=== PATIENT | female | born 2000 | race Caucasian/White ===

== ENCOUNTER 2019-09-05 13:17 | Emergency (ER) | payer OTHER ==
[~2019-09-05] VITALS: Ht 165.1 cm; Wt 73.0 kg
[2019-09-05 14:45] LABS: BASO % 0.2 % (0.0-1.0); EOS % 0.1 % (0.0-3.0); HEMATOCRIT 51.3 % (36.0-47.0); HEMOGLOBIN 17.3 g/dl (12.0-15.5); LYMPH # 0.6 10^3/uL (1.5-5.0); LYMPH % 4.6 % (24.0-44.0); MEAN CORPUSCULAR HEMOGLOBIN 29.9 pg (27.0-33.0); MEAN CORPUSCULAR HGB CONC 33.7 g/dl (32.0-36.5); MEAN CORPUSCULAR VOLUME 88.8 fl (80.0-96.0); MONO # 0.4 10^3/uL (0.0-0.8); MONO % 2.9 % (0.0-5.0); NEUTROPHILS # 12.8 10^3/uL (1.5-8.5); NEUTROPHILS % 91.8 % (36.0-66.0); PLATELET COUNT, AUTOMATED 295 10^3/uL (150-450); RED BLOOD COUNT 5.78 10^6/uL (4.00-5.40); WHITE BLOOD COUNT 13.9 10^3/uL (4.0-10.0)
[2019-09-05] MEDS ORDERED: NS 1,000 ML IV ONE ×2 (15:00→17:30)
[2019-09-05] MEDS ORDERED: ONDANSETRON 4MG/2ML VIAL (J2405) IV ONE (15:00)
[2019-09-05 15:14] LABS: ALBUMIN 4.6 GM/DL (3.2-5.2); ALT/SGPT 31 U/L (12-78); BILIRUBIN,DIRECT 0.2 MG/DL (0.0-0.2); BILIRUBIN,TOTAL 0.8 MG/DL (0.2-1.0); BLOOD UREA NITROGEN 16 MG/DL (7-18); CALCIUM LEVEL 10.4 MG/DL (8.5-10.1); CARBON DIOXIDE LEVEL 22 MEQ/L (21-32); CHLORIDE LEVEL 108 MEQ/L (98-107); CREATININE FOR GFR 1.09 MG/DL (0.55-1.30); GLOMERULAR FILTRATION RATE > 60.0 (>60); GLUCOSE, FASTING 106 MG/DL (70-100); LIPASE 88 U/L (73-393); POTASSIUM SERUM 4.9 MEQ/L (3.5-5.1); SODIUM LEVEL 140 MEQ/L (136-145)
[2019-09-05] MEDS ORDERED: ISOVUE-370 76% 100ML VIAL (Q9967) As Ordered ONE (16:01)
[2019-09-05 16:32] LABS: INFLUENZA A AMPLIFICATION NEGATIVE (NEGATIVE); INFLUENZA B AMPLIFICATION NEGATIVE (NEGATIVE)
--- NOTE | 2019-09-05 16:59 | REP ---
CT ABDOMEN AND PELVIS WITH IV CONTRAST: TECHNIQUE: Axial contrast enhanced images from the lung bases to the pubic symphysis using 100 mL Isovue 370 intravenous contrast material with multiplanar reformations. Visualized lung bases are clear. The liver, spleen, adrenals, pancreas and kidneys are normal in appearance. There is no hydronephrosis. There is no abdominal aortic aneurysm. There is no adenopathy. There is no free air or free fluid. No bowel wall thickening is seen. There is no evidence of bowel obstruction. No anterior abdominal wall defect is seen. No pelvic mass is seen. Uterus and ovaries appear unremarkable. IUD is seen in the uterus. Urinary bladder is not well distended and not well evaluated. IMPRESSION: No free air or obstruction. No free fluid. No bowel wall thickening. No acute findings identified. Electronically Signed by Francois Amado MD 09/05/2019 05:19 P
[2019-09-05] MEDS ORDERED: ONDA4TAB6 PO (17:52)
[2019-09-05 18:19] VITALS: BP 108/58
== END 2019-09-05 18:22 | disposition home or self-care (01) ==
LOC: M ED 13:17
DX: A08.11 Acute gastroenteropathy due to Norwalk agent (principal)
CPT/HCPCS: 36415; 74177; 80048; 80076; 81001; 83690; 84702; 85025; 87502; 87507; 96361; 96374; 99284; J2405; Q9967

== ENCOUNTER → 2020-02-09 | Outpatient (REF) | payer OTHER ==
[~2020-02-09] MED LIST: ONDA4TAB6 PO
== END ==
LOC: M WUC 18:11
PROVIDERS: ATTEND Physician Assistant
DX: R30.0 Dysuria (principal)

== ENCOUNTER → 2020-11-10 | Outpatient (CLI) | payer SELFPAY | LOC: M LABSMTC 14:19 | PROVIDERS: ATTEND Pediatrics | DX: Z11.52 Encounter for screening for COVID-19 (principal) ==

== ENCOUNTER 2021-01-06 16:46 | Emergency (ER) | payer OTHER ==
[~2021-01-06] VITALS: Ht 165.1 cm; Wt 73.0 kg
[2021-01-06] MEDS ORDERED: LIDOCAINE 2% W/EPINEPHRINE 20ML VIAL **PRES FREE INJ ONE (17:50)
--- NOTE | 2021-01-06 18:36 | REP ---
INDICATION: left hand pain s/p crush injury/ lg dog bite COMPARISON: None. TECHNIQUE: Four views left hand. FINDINGS: There is no evidence of acute fracture, dislocation, or intrinsic bone disease. IMPRESSION: No fracture or dislocation. <Electronically signed by Francois Amado > 01/06/21 [id number]
[2021-01-06] MEDS ORDERED: AUGMENTIN 875 MG TAB PO ONE (18:40)
[2021-01-06 18:45] VITALS: BP 115/81
--- NOTE | 2021-01-06 18:50 | ED PDOC ---
Post-Departure Follow-Up augmentin sent via digital application on provider iPrescribROSSANA Quiles [facility] Jan 06, 2021 18:49
== END 2021-01-06 18:58 | disposition home or self-care (01) ==
LOC: M ED 16:46
DX: S61.459A Open bite of unspecified hand, initial encounter (principal); W54.0XXA Bitten by dog, initial encounter; Y92.009 Unspecified place in unspecified non-institutional (private) residence as the place of occurrence of the external cause; Y93.K9 Activity, other involving animal care; Y99.9 Unspecified external cause status

== ENCOUNTER → 2021-01-22 | Outpatient (REF) | payer OTHER | LOC: M WUC 17:30 | PROVIDERS: ATTEND Physician Assistant Medical | DX: N39.0 Urinary tract infection, site not specified (principal) ==

== ENCOUNTER 2021-02-19 14:08 | Emergency (ER) | payer OTHER ==
[~2021-02-19] VITALS: Ht 165.1 cm; Wt 154.0 kg
--- NOTE | 2021-02-19 15:03 | REP ---
INDICATION: ankle injury/limited rom/limited weight baring. COMPARISON: Comparison radiographs January 21, 2016.. TECHNIQUE: Four views of the left ankle are provided. FINDINGS: Four views of the left ankle show an intact ankle mortise. There is some sclerosis and irregularity in the medial talar dome question osteochondritis dissecans versus old osteochondral fracture. No acute fracture is seen. Achilles tendon margin appears intact. 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 Further evaluation with MRI suggested. No acute fracture is seen.. <Electronically signed by Catalino Soares > 02/19/21 1500
--- NOTE | 2021-02-19 15:05 | REP ---
INDICATION: fall/limited weight baring/. COMPARISON: None. TECHNIQUE: Four views of the left foot are provided. FINDINGS: Four views of the left foot demonstrate normal bones, joints, and soft tissues. No fracture or subluxation is seen. No opaque foreign body noted. IMPRESSION: Negative left foot series. <Electronically signed by Catalino Soares > 02/19/21 [id number]
[2021-02-19 16:13] VITALS: BP 114/88
== END 2021-02-19 16:13 | disposition home or self-care (01) ==
LOC: M ED 14:08
DX: S93.402A Sprain of unspecified ligament of left ankle, initial encounter (principal); S93.602A Unspecified sprain of left foot, initial encounter; M93.272 Osteochondritis dissecans, left ankle and joints of left foot; X50.1XXA Overexertion from prolonged static or awkward postures, initial encounter; Y92.009 Unspecified place in unspecified non-institutional (private) residence as the place of occurrence of the external cause; Y93.9 Activity, unspecified; Y99.9 Unspecified external cause status

== ENCOUNTER → 2024-06-30 | Outpatient (CLI) | payer OTHER ==
[~2024-06-30] MED LIST changes: +ONDA-282 PO; -ONDA4TAB6 PO
== END ==
LOC: M WHC 09:35
PROVIDERS: ATTEND Advanced Practice Midwife
DX: O09.892 Supervision of other high risk pregnancies, second trimester (principal); O32.1XX0 Maternal care for breech presentation, not applicable or unspecified; Z3A.27 27 weeks gestation of pregnancy

== ENCOUNTER → 2024-07-09 | Outpatient (CLI) | payer OTHER ==
[2024-07-09 13:11] LABS: HEMATOCRIT 39.3 % (36.0-47.0); HEMOGLOBIN 13.4 g/dl (12.0-15.5); MEAN CORPUSCULAR HEMOGLOBIN 31.8 pg (27.0-33.0); MEAN CORPUSCULAR HGB CONC 34.1 g/dl (32.0-36.5); MEAN CORPUSCULAR VOLUME 93.3 fl (80.0-96.0); PLATELET COUNT, AUTOMATED 239 10^3/uL (150-450); RED BLOOD COUNT 4.21 10^6/uL (4.00-5.40); WHITE BLOOD COUNT 11.7 10^3/uL (4.0-10.0)
[2024-07-09 13:42] LABS: GLUCOSE CHALLENGE TEST 1 HOUR 104 MG/DL (LESS THAN 140)
[2024-07-10 18:39] LABS: HIV 1&2 SCREEN NEGATIVE (NEGATIVE)
[2024-07-10 18:47] LABS: HEPATITIS C VIRUS ABY INDEX < 0.02 INDEX (<0.8)
== END ==
LOC: M PLALAB 10:25
PROVIDERS: ATTEND Advanced Practice Midwife
DX: Z34.82 Encounter for supervision of other normal pregnancy, second trimester (principal)

== ENCOUNTER → 2024-07-28 | Outpatient (CLI) | payer OTHER | LOC: M WHC 09:31 | PROVIDERS: ATTEND Advanced Practice Midwife | DX: O09.893 Supervision of other high risk pregnancies, third trimester (principal); Z3A.33 33 weeks gestation of pregnancy; O32.1XX0 Maternal care for breech presentation, not applicable or unspecified ==

== ENCOUNTER → 2024-08-25 | Outpatient (CLI) | payer OTHER | LOC: M WHC 10:26 | PROVIDERS: ATTEND Advanced Practice Midwife | DX: O09.893 Supervision of other high risk pregnancies, third trimester (principal); O32.1XX0 Maternal care for breech presentation, not applicable or unspecified; Z3A.35 35 weeks gestation of pregnancy ==

== ENCOUNTER → 2024-09-01 | Outpatient (REF) | payer OTHER | LOC: M PLALAB 11:24 | PROVIDERS: ATTEND Specialist | DX: Z34.03 Encounter for supervision of normal first pregnancy, third trimester (principal) ==

== ENCOUNTER 2024-09-11 11:38 | Outpatient (CLI) | payer OTHER ==
[~2024-09-11] VITALS: Ht 165.1 cm; Wt 88.3 kg
[2024-09-11] MEDS ORDERED: PRENTAB9 PO (11:54)
[2024-09-11] MEDS ORDERED: ACET-907 PO (11:55)
[2024-09-11 11:57] VITALS: BP 126/83
[2024-09-11] MEDS ORDERED: HOME MED LIST COMPLETE! XX SCH (12:10)
[2024-09-16] MEDS ORDERED: AMOX875T PO (10:04)
== END 2024-09-11 13:52 | disposition home or self-care (01) ==
LOC: M LDO 11:38
PROVIDERS: ATTEND Specialist
DX: O32.1XX9 Maternal care for breech presentation, other fetus (principal); O43.193 Other malformation of placenta, third trimester; Z3A.37 37 weeks gestation of pregnancy
CPT/HCPCS: 59025; 59412; 76815; G0463